=== PATIENT | female | born 1940 | race African-American/Black ===

== ENCOUNTER → 2016-07-12 | Outpatient (CLI) | payer MEDICARE ==
[~2016-07-12] MED LIST: /PRAV20TA PO; ANTI12.5 PO; ASPI81TA85 PO; ATEN50TA2 PO; CALC600T7 PO; DIOV320T PO; METF500T PO; TYLE325T5 PO; [UNRECOGNIZED DRUG - CODE] OU; lantanoprost OU
--- NOTE | 2016-07-12 13:50 | REPMRS ---
Patient History The patient states she has not had a clinical breast exam in over a year. No known family history of cancer. Benign core biopsy of the right breast, June 24, 2011. Digital Woman Screen Mammo: July 12, 2016 - Exam #: [id number] Bilateral CC and MLO view(s) were taken. Technologist: Karissa Ventura, Technologist Prior study comparison: July 04, 2015, digital woman screen mammo performed at [facility]. July 05, 2014, digital woman screen mammo performed at [facility]. July 01, 2013, bilateral bilat screen digital mammo, performed at [facility] ([facility]). FINDINGS: There are scattered fibroglandular densities. There has been no change in the appearance of the mammogram from the prior studies. There is a needle biopsy marker clip in the right breast. There is a mild amount of scattered fibroglandular density which is fairly symmetric. There is no interval development of dominant mass, architectural distortion, or clustered microcalcification suggestive of malignancy. ASSESSMENT: BI-RADS/ACR category 2 mammogram. Benign finding(s). Recommendation Routine screening mammogram in 1 year (for women over age 40). This mammogram was interpreted with the aid of an FDA-approved computer-aided dectection system. Electronically Signed By: Johnny Berger MD 07/12/16 1624
== END ==
LOC: M WHC 12:52
DX: Z12.31 Encounter for screening mammogram for malignant neoplasm of breast (principal)

== ENCOUNTER → 2016-07-24 | Outpatient (CLI) | payer MEDICARE, MEDICAID ==
[2016-07-24 13:08] LABS: ANION GAP 9 MEQ/L (8-16); BLOOD UREA NITROGEN 15 MG/DL (7-18); CALCIUM LEVEL 9.5 MG/DL (8.8-10.2); CARBON DIOXIDE LEVEL 29 MEQ/L (21-32); CHLORIDE LEVEL 103 MEQ/L (98-107); CREATININE FOR GFR 0.82 MG/DL (0.55-1.02); GLOMERULAR FILTRATION RATE > 60.0 (>39); GLUCOSE, FASTING 96 MG/DL (83-110); POTASSIUM SERUM 4.1 MEQ/L (3.5-5.1); SODIUM LEVEL 141 MEQ/L (136-145)
[2016-07-24 13:32] LABS: COLLAGEN ADP > 300 SECONDS (56-103)
--- NOTE | 2016-07-24 14:02 | ECGEPIP ---
Stationary ECG Study [facility] Test Date: 2016-07-24 Pat Name: RENE GODINEZ Department: Room: - Gender: F Neurological Surgeon: TIARRA : 1940 Requested By: JOAQUÍN Martinez Order Number: [id number] Reading MD: Lopez Dacosta Measurements Intervals [place] Rate: 63 P: 68 ID: [id number] QRS: -9 QRSD: 86 T: -9 QT: 415 QTc: 426 Interpretive Statements SINUS RHYTHM ST DEVIATION AND MODERATE T-WAVE ABNORMALITY, CONSIDER ANTERIOR ISCHEMIA More prominent T-wave abnormalities anteriorly compared with 10/11/2012. Electronically Signed On 07-24-2016 14:02:06 EST by Lopez Dacosta
== END ==
LOC: M LAB 11:05
PROVIDERS: ATTEND Ophthalmology
DX: H25.13 Age-related nuclear cataract, bilateral (principal)

== ENCOUNTER 2017-05-14 06:19 | Day surgery (SDC) | payer MEDICARE, MEDICAID ==
--- NOTE | 2017-05-06 05:58 | CR ---
PREOPERATIVE EVALUATION AND CONSULTATION: DATE OF CONSULTATION: 05/05/2017 CONSULTING PHYSICIAN: Dr. Anuj Bright MD SURGEON: Dr. Gongora PROPOSED SURGICAL DATE: 05/14/2017 PROPOSED SURGERY: Left eye cataract extraction and stent for glaucoma. CHIEF COMPLAINT: Preoperative evaluation. HISTORY OF PRESENT ILLNESS: This is a very pleasant 76-year-old female presents today for preoperative evaluation prior to left eye surgery as noted above. Patient is generally healthy. Did have a similar surgery of the right eye on 04/09/2017 and notes that this went well without new problems or issues. Patient is doing well overall without any new symptoms or concerns. Since her last visit, she has had no new problems or concerns. She does have known coronary artery disease (CAD), which was mild and diffuse on cardiac catheterization in 2004. She has known well-controlled diabetes with last hemoglobin A1c of 6.5. Hypertension and hyperlipidemia are also well controlled on present medication without significant complication or issue. She does not smoke, nor has she had any history of asthma or other respiratory issues. She denies any symptoms of obstructive sleep apnea (JARRETT) or significant snoring. Patient overall is quite active and mentally sharp. PAST MEDICAL HISTORY: 1. Hypertension. 2. Hyperlipidemia. 3. Type 2 diabetes, controlled on metformin alone. 4. CAD, mild on left heart catheterization in 2004. 5. Glaucoma. 6. Known breast calcifications, status post biopsy. 7. Osteoarthritis of multiple joints, especially the right knee. PAST SURGICAL HISTORY: 1. Multiple breast biopsies when calcifications were found. 2. Total abdominal hysterectomy due to bleeding. 3. Cardiac catheterization in 2004 showed a 20% narrowing in the first diagonal and circumflex. A normal ejection fraction and some left ventricular hypertrophy. 4. Colonoscopy with Dr. Lewis showed adenomatous polyp in 2014. MEDICATION: - timolol eye drops 0.25% - latanoprost eye drops at bedtime - Lipitor 40 mg daily - atenolol 25 mg daily - vitamin D one tablet twice a day - aspirin 81 mg daily - metformin 500 mg daily - Diovan 80 mg daily ALLERGIES: Patient gets hives with PENICILLIN. Patient also had an angiotensin-converting enzyme (FRANK) inhibitor cough but has done well on ARB. FAMILY HISTORY: Father of stomach cancer at age 40. Mother of diabetes and heart disease age 95. Patient had two sisters and two brothers. One of her sisters at age 79 of chronic obstructive pulmonary disease (COPD) and diabetes. A brother at 55; he had supranuclear palsy. SOCIAL HISTORY: Patient lives alone and does quite well. Her daughter, Sonal, is a local assistant district attorney and again can be reached at [phone]. She and her other local daughter check on her regularly. She has been since 1978. 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 She has four children, [place], Sonal, Day Madrigal. The patient is a nonsmoker. She had a short period of time where she smoked, over 30 years ago. She takes occasional wine but does not drink on a regular basis. REVIEW OF SYSTEMS: As per history of present illness (HPI); otherwise, 10-system review is completely negative. PHYSICAL EXAM: VITAL SIGNS: Blood pressure 128/80, pulse of 72. Height of 5 feet 6 inches, weight of 201 pounds. Body mass index (BMI) of 32.4. GENERAL: Patient appears well, in no acute distress, nontoxic, alert and oriented times three. She is smiling and interactive. Speech is fluent. HEENT: Notes pupils equal, round, reactive to light and accommodation. Extraocular motions intact. No lesions of lid or conjunctiva. She does have significantly better vision in the right eye after surgery without stigmata of a cataract as she does in the left eye. Tympanic membranes (TMs) and external auditory canals bilaterally are benign. Oral cavity and oropharynx are benign. HEART: Regular rate and rhythm. S1, S2. There is no murmur. LUNGS: Clear to auscultation bilaterally. No rales, rhonchi, or wheezes. ABDOMEN: Soft, nontender, nondistended. No organomegaly is appreciated. EXTREMITIES: No clubbing, cyanosis, or edema whatsoever. MUSCULOSKELETAL: Patient appears to have good strength in both her upper and lower legs. She does, however, use a quad cane for stability, but it does not appear to be a necessity. Remainder of the neurologic exam is completely benign. PREOPERATIVE LABS: No labs are necessary. Most recent labs and EKG were sent with prior preop for 03/21/2017. ASSESSMENT AND PLAN: 1. Preoperative evaluation and consultation. At this point in time, the patient is optimized for surgical intervention. This is a low-risk procedure, and the patient is of intermediate risk with risk factors such as hypertension and diabetes and known coronary artery disease. However, these appear to be controlled and the patient has no symptoms that would suggest other issues or concerns. She also recently went through surgery to the left eye and did quite well and is having good results. 2. Left eye cataract. Patient looks forward to surgical intervention for further improved vision. 3. Glaucoma. Patient does also look forward to stenting with hopes of decreasing her eye pressure, which she had done with the right. 4. Hyperlipidemia. Good results on Lipitor at the present dose. We will continue to monitor. 5. Type 2 diabetes, well controlled. Has done well and is on appropriate regimen. Does check her blood sugars everyday, and they are usually under 100. No episodes of low blood sugar. 6. Hypertension, well controlled on present regimen. I do expect that the beta-hitesh will be maintained throughout the perisurgical stay. 7. Atherosclerosis, distant, nonocclusive on catheterization in 2004. 8. Abnormal EKG. There is a conduction delay. It does not appear to be anything significant that would prevent surgical intervention. 9. Tubular polyps. He is followup with cardiology. 10. Ongoing care. I am going to see her again as scheduled. Any questions or concerns, feel free to call me at [phone].
[~2017-05-14] VITALS: Ht 171.4 cm; Wt 91.5 kg
[~2017-05-14 06:19] MED LIST changes: +ACETAMINOPHEN 325 MG TAB PO PRN
[2017-05-14] MEDS ORDERED: CYCLOPENTOLATE 2% OPHTH SOLN 2ML BTL As Ordered ONE (06:29)
[2017-05-14] MEDS ORDERED: OFLOXACIN 0.3 % (OCUFLOX) OPTH SOL 5ML As Ordered ONE (06:29)
[2017-05-14] MEDS ORDERED: PHENYLEPHRINE 2.5% OPHTH SOL 2ML As Ordered ONE (06:29)
[2017-05-14] MEDS ORDERED: LR 1,000 ML IV ONE (06:30)
[2017-05-14] MEDS ORDERED: TROPICAMIDE 1% OPHTH SOLN 2ML As Ordered ONE (06:30)
[2017-05-14] MEDS ORDERED: OFLOXACIN 0.3 % (OCUFLOX) OPTH SOL 5ML OS ONE (07:00)
[2017-05-14] MEDS ORDERED: TROPICAMIDE 1% OPHTH SOLN 2ML OS ONE (07:00)
[2017-05-14] MEDS ORDERED: BSS with VANC/TOB/EPI for EYE CASES IR ONE (07:00)
[2017-05-14] MEDS ORDERED: PHENYLEPHRINE 2.5% OPHTH SOL 2ML OS ONE (07:00)
[2017-05-14] MEDS ORDERED: CYCLOPENTOLATE 2% OPHTH SOLN 2ML BTL OS ONE (07:00)
[2017-05-14] MEDS ORDERED: LIDOCAINE 3.5 % 1ML OPHTH TOPICAL GEL OU ONE (07:00)
[2017-05-14] MEDS ORDERED: PHENYLEPHRINE HCL 10 % OPHTH. SOL 5ML OS PRN (07:00)
[2017-05-14] MEDS ORDERED: PROPARACAINE 0.5% OPHTH SOL 15ML XX PRN (07:01)
[2017-05-14] MEDS ORDERED: TRIAMCINOLONE PRES FR 40 MG/ML 1ML(TRIESENCE)(OR EYE ONLY)(J3300 PER 1MG) As Ordered ONE (07:14)
[2017-05-14] MEDS ORDERED: POVIDONE-IODINE 5% OPHTH PREP SOL 30ML As Ordered ONE ×2 (07:14→13:25)
[2017-05-14] MEDS ORDERED: LIDOCAINE 1% SDV 5 ML VIAL As Ordered ONE (07:14)
[2017-05-14] MEDS ORDERED: MOXIFLOXACIN IN BSS 0.25MG/0.25ML INTRACAMERAL INJ (OR EYE ONLY)(J2280) As Ordered ONE (07:14)
[2017-05-14] MEDS ORDERED: HEALON DUET (HEALON 10MG/ML 0.55ML & HEALON ENDOCOAT 30MG/ML 0.85ML) As Ordered ONE ×2 (07:15→08:10)
[2017-05-14] MEDS ORDERED: MIDAZOLAM INJ 2 MG/2 ML VIAL (J2250) As Ordered ONE (07:17)
[2017-05-14] MEDS ORDERED: fentaNYL 100 MCG/2 ML INJECTION (J3010) As Ordered ONE (07:18)
[2017-05-14] MEDS ORDERED: CEFUROXIME 1MG/0.1ML INTRACAMERAL INJ As Ordered ONE (08:09)
[2017-05-14] MEDS ORDERED: ACETYLCHOLINE OPHTH SOLN 1% 2ML (MIOCHOL-E) As Ordered ONE (08:33)
[2017-05-14] MEDS ORDERED: KETOROLAC 0.5% OPHTH SOLN XX ONE (09:30)
[2017-05-14] MEDS ORDERED: TRIMETHOBENZAMIDE 300 MG CAP PO PRN (09:30)
[2017-05-14] MEDS ORDERED: AcetaZOLAMIDE 500 MG ER CAP PO ONE (09:30)
[2017-05-14 09:40] VITALS: BP 164/74
--- NOTE | 2017-05-14 11:04 | RO ---
DATE OF PROCEDURE: 05/14/2017 PREPROCEDURE DIAGNOSES: Glaucoma and cataract, left eye. POSTPROCEDURE DIAGNOSES: Glaucoma and cataract, left eye. PROCEDURE: Phacoemulsification with intraocular lens implantation of HOYA power 25.5 and endocyclophotocoagulation and placement of the Glaukos iStent. SURGEON: Dr. Emily Gongora GARMENT EXAMINER: None. ANESTHESIA: COMPLICATIONS: None. DESCRIPTION OF PROCEDURE: Procedure in detail: Patient was brought to the operating room, laid in supine position. The eye was prepped and draped in a sterile fashion for ophthalmic surgery. Lid speculum was placed. Side port incision was made and EndoCoat was injected into the anterior chamber. This was followed by temporal clear corneal incision with a 2.5 mm keratome, followed by capsulorrhexis and hydrodissection. Phacoemulsification was then carried out in a [id number] method, followed by aspiration of the cortical material. Healon was placed in the capsular bag, intraocular lens placed within the bag. Healon was then placed in the ciliary sulcus to visualize the ciliary processes on the video screen with the help of the EndoProbe. Endocyclophotocoagulation at 0.25 milliwatts was then carried out for 280 degrees. Good results were noted by the shrinking of the ciliary processes. Healon was then placed into the anterior chamber to visualize the trabecular meshwork and infranasal quadrant. With the help of the Goniolens, the patient's head turned away from the surgery and the iStent was placed. Good blood reflux was noted. 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 Excess viscoelastic was aspirated. Lid speculum was removed, and the patient was returned to recovery room in stable condition.
== END 2017-05-14 09:45 | disposition home or self-care (01) ==
LOC: M SDC 06:19
PROVIDERS: ATTEND Ophthalmology
DX: H26.9 Unspecified cataract (principal); I10 Essential (primary) hypertension; E78.5 Hyperlipidemia, unspecified; E11.9 Type 2 diabetes mellitus without complications; I25.10 Atherosclerotic heart disease of native coronary artery without angina pectoris; H40.9 Unspecified glaucoma; M15.9 Polyosteoarthritis, unspecified; R94.31 Abnormal electrocardiogram [ECG] [EKG]; Z79.899 Other long term (current) drug therapy; Z79.84 Long term (current) use of oral hypoglycemic drugs; Z79.82 Long term (current) use of aspirin; Z88.0 Allergy status to penicillin; Z88.8 Allergy status to other drugs, medicaments and biological substances
CPT/HCPCS: 66183; 66711; 66984; C1783; J2250; J3010; V2632

== ENCOUNTER → 2017-07-16 | Outpatient (CLI) | payer MEDICARE, MEDICAID | LOC: M WHC 12:54 | DX: Z12.31 Encounter for screening mammogram for malignant neoplasm of breast (principal) | CPT/HCPCS: 77067 ==

== ENCOUNTER → 2018-07-24 | Outpatient (CLI) | payer MEDICARE ==
[~2018-07-24] MED LIST changes: -ACETAMINOPHEN 325 MG TAB PO PRN
--- NOTE | 2018-07-24 19:20 | REPMRS ---
Patient History The patient states she has not had a clinical breast exam in over a year. No known family history of cancer. Benign core biopsy of the right breast, June 24, 2011. Digital Woman Screen Mammo: July 24, 2018 - Exam #: [id number] Bilateral CC and MLO view(s) were taken. Technologist: Dona Victoria, Technologist Prior study comparison: July 16, 2017, digital woman screen mammo performed at [facility]. July 12, 2016, digital woman screen mammo performed at [facility]. FINDINGS: There are scattered fibroglandular densities. There has been no change in the appearance of the mammogram from the prior studies. There is a moderate amount of residual fibroglandular tissue which is fairly symmetric. There is no interval development of dominant mass, architectural distortion, or clustered microcalcification suggestive of malignancy. Large coarse benign appearing "popcorn" calcifications are present suggestive of calcifying fibroadenomas in each breast. Scattered lymph nodes are seen in the axillae. There are scattered, small, benign calcifications of doubtful clinical significance. 3-D tomosynthesis shows no additional findings. The patient's Tyrer-Cuzick lifetime risk assessment score is 2.1 %. No significant changes when compared with prior studies. Assessment: BI-RADS/ACR category 2 mammogram. Benign Findings. Recommendation Routine screening mammogram in 1 year (for women over age 40). This mammogram was interpreted with the aid of an FDA-approved computer-aided dectection system. A. Negative x-ray reports should not delay biopsy if a dominant or clinically suspicious mass is present. B. Four to eight percent of cancers are not identified by mammography. C. Adenosis and dense breast may obscure an underlying neoplasm. Electronically Signed By: Janak Zuñiga MD 07/24/18 3487
== END ==
LOC: M WHC 12:54
PROVIDERS: ATTEND Family Medicine
DX: Z12.31 Encounter for screening mammogram for malignant neoplasm of breast (principal)

== ENCOUNTER 2019-06-21 07:38 | Day surgery (SDC) | payer MEDICARE ==
[~2019-06-21] VITALS: Ht 171.4 cm; Wt 89.8 kg
[~2019-06-21 07:38] MED LIST changes: -/PRAV20TA PO; +ATEN25TA PO; +ATOR40TA75 PO; +BIOT1000 PO; +CALC600T66 PO; +ECOT81TA5 PO; +LATA0.0015 OP; +LOSA50TA88 PO; +METF500T13 PO; +NS 1,000 ML IV ONE; +PRAV1TAB39 PO; +TIMOXEOPD OP
[2019-06-21] MEDS ORDERED: LIDOCAINE 2% INJ 100 MG/5 ML SDV (FOR ANES.) As Ordered ONE (09:02)
[2019-06-21] MEDS ORDERED: propofoL 500 MG/50 ML VIAL As Ordered ONE (09:02)
--- NOTE | 2019-06-21 09:06 | ROOR ---
Patient Name: Jen Whiting Procedure Date: 06/21/2019 8:44 AM Date of : 1940 Age: 78 Room: [facility] Gender: Female Note Status: Finalized Procedure: Total Colonoscopy to Cecum Indications: High risk colon cancer surveillance: Personal history of colonic polyps, Last colonoscopy: 2014 Providers: Osmani Lewis MD Referring MD: Anuj Bright MD Requesting Provider: Medicines: Monitored Anesthesia Care Complications: No immediate complications. Procedure: Pre-Anesthesia Assessment: - The heart rate, respiratory rate, oxygen saturations, blood pressure, adequacy of pulmonary ventilation, and response to care were monitored throughout the procedure. The Colonoscope was introduced through the anus and advanced to the cecum, identified by appendiceal orifice and ileocecal valve. The colonoscopy was performed without difficulty. The patient tolerated the procedure well. The quality of the bowel preparation was excellent. Findings: The perianal and digital rectal examinations were normal. Non-bleeding internal hemorrhoids were found during retroflexion. The hemorrhoids were small and Grade I (internal hemorrhoids that do not prolapse). Multiple small and large-mouthed diverticula were found in the recto-sigmoid colon, sigmoid colon and descending colon. The exam was otherwise without abnormality on direct and retroflexion views. Impression: - Non-bleeding internal hemorrhoids. - Diverticulosis in the recto-sigmoid colon, in the sigmoid colon and in the descending colon. - The examination was otherwise normal on direct and retroflexion views. - No specimens collected. - The exam was otherwise normal to the cecum. Recommendation: - Patient has a contact number available for emergencies. The signs and symptoms of potential delayed complications were discussed with the patient. Return to normal activities tomorrow. Written discharge instructions were provided to the patient. - High fiber diet. - Discharge patient to home. - Continue present medications. - Repeat colonoscopy for symptoms only. - Return to referring physician. - The findings and recommendations were discussed with the patient's family. Osmani Lewis MD Osmani Lewis MD 06/21/2019 9:05:36 AM Electronically signed by Osmani Lewis MD Number of Addenda: 0 Note Initiated On: 06/21/2019 8:44 AM Estimated Blood Loss: Estimated blood loss: none.
[2019-06-21 09:25] VITALS: BP 136/81
== END 2019-06-21 09:44 | disposition home or self-care (01) ==
LOC: M OPP 07:38
PROVIDERS: ATTEND Internal Medicine Gastroenterology
DX: Z12.11 Encounter for screening for malignant neoplasm of colon (principal); Z86.010 Personal history of colon polyps; K64.0 First degree hemorrhoids; K57.30 Diverticulosis of large intestine without perforation or abscess without bleeding; Z88.0 Allergy status to penicillin; Z88.8 Allergy status to other drugs, medicaments and biological substances; Z79.899 Other long term (current) drug therapy; Z79.82 Long term (current) use of aspirin; Z79.84 Long term (current) use of oral hypoglycemic drugs

== ENCOUNTER → 2019-08-13 | Outpatient (CLI) | payer MEDICARE ==
[~2019-08-13] MED LIST changes: -NS 1,000 ML IV ONE
--- NOTE | 2019-08-13 12:15 | REPMRS ---
Patient History The patient states she has not had a clinical breast exam in over a year. No known family history of cancer. Benign core biopsy of the right breast, June 24, 2011. Digital Woman Screen Mammo: August 13, 2019 - Exam #: [id number] Bilateral CC and MLO view(s) were taken. Technologist: Fariba Miles, Technologist Prior study comparison: July 24, 2018, bilateral digital woman screen mammo performed at [facility]. July 16, 2017, digital woman screen mammo performed at [facility]. July 12, 2016, digital woman screen mammo performed at [facility]. FINDINGS: There are scattered fibroglandular densities. There is a needle biopsy marker clip in a densely calcified benign fibroadenoma in the right breast upper outer quadrant again noted. There is a similarly calcified benign fibroadenoma on the left. There has been no change in the appearance of the mammogram from the prior studies. There is a mild amount of scattered fibroglandular density which is fairly symmetric. There is no interval development of dominant mass, architectural distortion, or grouped microcalcification suggestive of malignancy. 3-D tomosynthesis shows no additional findings. Assessment: BI-RADS/ACR category 2 mammogram. Benign Findings. Recommendation Routine screening mammogram of both breasts in 1 year (for women over age 40). This patient's Lifetime Breast Cancer Risk is estimated at 1.8 %. This mammogram was interpreted with the aid of an FDA-approved computer-aided dectection system. Electronically Signed By: Johnny Berger MD 08/13/19 2732
== END ==
LOC: M WHC 10:29
PROVIDERS: ATTEND Family Medicine
DX: Z12.31 Encounter for screening mammogram for malignant neoplasm of breast (principal); Z86.018 Personal history of other benign neoplasm

== ENCOUNTER → 2020-08-18 | Outpatient (CLI) | payer MEDICARE ==
--- NOTE | 2020-08-18 12:00 | REPMRS ---
Patient History The patient states she has not had a clinical breast exam in over a year. No known family history of cancer. Benign core biopsy of the right breast, June 24, 2011. No Hormone Replacement Therapy Digital Woman Screen Mammo: August 18, 2020 - Exam #: [id number] Bilateral CC and MLO view(s) were taken. Technologist: Karissa Ventura, Technologist Prior study comparison: August 13, 2019, bilateral digital woman screen mammo performed at [facility]. July 24, 2018, bilateral digital woman screen mammo performed at [facility]. July 16, 2017, digital woman screen mammo performed at [facility]. FINDINGS: There are scattered fibroglandular densities. The Volpara volumetric breast density category is:B. There has been no change in the appearance of the mammogram from the prior studies. There is a mild amount of scattered fibroglandular density which is fairly symmetric. There is no interval development of dominant mass, architectural distortion, or grouped microcalcification suggestive of malignancy. 3-D tomosynthesis shows no additional findings. Assessment: BI-RADS/ACR category 1 mammogram. Negative Mammogram. Recommendation Routine screening mammogram of both breasts in 1 year (for women over age 40). This patient's [facility] Lifetime Breast Cancer Risk is estimated at 1.5 %. This mammogram was interpreted with the aid of an FDA-approved computer-aided dectection system. Electronically Signed By: Johnny Berger MD 08/18/20 1200
--- NOTE | 2020-08-18 12:47 | DEXAMM ---
INDICATION: M85.80 [facility] DISRD OF BONE DENSITY AND STRUCTURE. COMPARISON: None. TECHNIQUE: Bone density was measured using dual-energy x-ray absorptionmetry (DEXA). FINDINGS: AP SPINE L1-L4 BMD 1.492 g/cm2 Young Adult T-Score 2.4 Age Matched Z-Score 3.6. LT FEMUR, TOTAL BMD 1.180 g/cm2 Young Adult T-Score 1.4 Age Matched Z-Score 2.4. LT NECK BMD 1.008 g/cm2 Young Adult T-Score -0.2 Age Matched Z-Score 1.1. RT FEMUR, TOTAL BMD 1.076 g/cm2 Young Adult T-Score 0.5 Age Matched Z-Score 1.6. RT NECK BMD 0.966 g/cm2 Young Adult T-Score -0.5 Age Matched Z-Score 0.7. IMPRESSION: There is normal bone density of the spine. There is normal bone density of the left hip. There is normal bone density of the right hip. FOLLOW-UP: Recommendation for the next bone density exam: 5 years. <Electronically signed by Johnny Berger > 08/18/20 [id number]
== END ==
LOC: M WHC 10:29
PROVIDERS: ATTEND Family Medicine
DX: Z12.31 Encounter for screening mammogram for malignant neoplasm of breast (principal); M85.80 Other specified disorders of bone density and structure, unspecified site; R92.2 Inconclusive mammogram

== ENCOUNTER → 2022-01-25 | Outpatient (CLI) | payer MEDICARE ==
[~2022-01-25] MED LIST changes: +LOSA50TA28 PO; -LOSA50TA88 PO
== END ==
LOC: M WHC 12:13
PROVIDERS: ATTEND Family Medicine
DX: Z12.31 Encounter for screening mammogram for malignant neoplasm of breast (principal)

== ENCOUNTER → 2023-01-29 | Outpatient (CLI) | payer MEDICARE | LOC: M WHC 09:48 | PROVIDERS: ATTEND Family Medicine | DX: Z12.31 Encounter for screening mammogram for malignant neoplasm of breast (principal) ==

== ENCOUNTER → 2024-02-03 | Outpatient (CLI) | payer MEDICARE | LOC: M WHC 09:22 | PROVIDERS: ATTEND Family Medicine | DX: Z12.31 Encounter for screening mammogram for malignant neoplasm of breast (principal) ==

== ENCOUNTER 2024-09-30 10:49 | Emergency (ER) | payer MEDICARE ==
[~2024-09-30] VITALS: Ht 170.2 cm; Wt 84.1 kg
[2024-09-30 10:54] VITALS: O2SAT 97
[2024-09-30 13:02] VITALS: TEMP 98.9
[2024-09-30 13:14] VITALS: BP 178/96
[2024-09-30] MEDS ORDERED: IBUP200C33 PO (13:48)
== END 2024-09-30 13:53 | disposition home or self-care (01) ==
LOC: M ED 10:49
DX: M25.461 Effusion, right knee (principal); I10 Essential (primary) hypertension; H40.9 Unspecified glaucoma; Z79.82 Long term (current) use of aspirin; Z79.899 Other long term (current) drug therapy; Z88.0 Allergy status to penicillin; Z88.8 Allergy status to other drugs, medicaments and biological substances

== ENCOUNTER → 2025-02-04 | Outpatient (CLI) | payer MEDICARE ==
[~2025-02-04] MED LIST changes: -BIOT1000 PO; +BIOT10002 PO; +IBUP200C33 PO
== END ==
LOC: M WHC 09:55
PROVIDERS: ATTEND Family Medicine
DX: Z12.31 Encounter for screening mammogram for malignant neoplasm of breast (principal)